=== PATIENT | male | born 1965 | race Two or more races ===

== ENCOUNTER 2023-04-28 23:58 | Inpatient (IN) | payer MEDICARE, MEDICAID ==
[~2023-04-28] VITALS: Ht 154.9 cm; Wt 75.0 kg
[2023-04-29 00:31] LABS: Hemoglobin 17.7 g/dL (13.5-17.5)
[2023-04-29 00:33] LABS: Mean Corpuscular Hemoglobin 31.9 pg (28.0-32.0); Mean Corpuscular Hgb Conc. 33.4 g/dL (32.0-36.0); Mean Corpuscular Volume 95.7 fL (80.0-100.0); Red Blood Cells 5.54 10^6/uL (4.5-5.90); White Blood Cell 20.4 10^3/uL (4.4-10.8)
[2023-04-29] MEDS ORDERED: IOHEXOL 300 MG/ML 100ML BOTTLE IJ ONE (00:41)
[2023-04-29 00:50] LABS: Albumin 3.8 g/dL (3.4-5.0); BUN/Creatinine Ratio 12.2 (10.0-20.0); Calcium 9.3 mg/dL (8.5-10.1); Potassium 4.3 mmol/L (3.5-5.1)
[2023-04-29 00:53] LABS: Bilirubin, Total 0.5 mg/dL (0.2-1.0); Total Protein 8.1 g/dL (6.4-8.2)
[2023-04-29 01:01] LABS: Basophils % (manual) 0 (0.0-2.0); Blast Cells 0; Eosinophils % (manual) 0 (0-7); Metamyelocytes % 0; Myelocytes % 0; Promyelocytes % 0; Reactive Lymphocytes 0
[2023-04-29 02:57] LABS: Band Neutrophils % (manual) 14; Lymphocytes % (manual) 6 (10.0-50.0); Monocytes % (manual) 5 (0-12)
[2023-04-29] MEDS ORDERED: PIPERACILLIN-TAZOB 3.375GM 100 ML IV ONE (05:15)
[2023-04-29] MEDS ORDERED: VANCOMYCIN 1GM/250ML 250 ML IV ONE (05:15)
[2023-04-29] MEDS ORDERED: ALBUTEROL SULF 2.5 MG/0.5ML(0.5%) NEB SOLN NEB PRN ×3 (05:45→09:45)
[2023-04-29] MEDS ORDERED: LORazepam 2MG/ML-1ML VIAL IV PRN (05:45)
[2023-04-29] MEDS ORDERED: ACETAMINOPHEN 325 MG TAB PO PRN (05:45)
[2023-04-29] MEDS ORDERED: MORPHINE SULFATE INJ 2 MG/ml SYRG IV PRN ×2 (05:45)
[2023-04-29] MEDS ORDERED: DOCUSATE SOD 100 MG CAP PO PRN ×2 (05:45→12:45)
[2023-04-29] MEDS ORDERED: DexAMETHasone SOD PHOS 10MG/1ML VIAL INJ IV ONE (05:45)
[2023-04-29] MEDS ORDERED: IPRATROPIUM BROM 0.5 MG/2.5ML INH SOL NEB PRN ×2 (05:45→09:45)
[2023-04-29] MEDS ORDERED: NITROGLYCERIN 0.4 MG SL TAB SL PRN (05:45)
[2023-04-29] MEDS ORDERED: ONDANSETRON HCL 4 MG/2 ML VIAL IV PRN (05:45)
[2023-04-29] MEDS ORDERED: VANCOMYCIN PER PHARMACY 0 MG IV SCH (05:45)
[2023-04-29 06:44] LABS: Basophils # (auto) 0 10 ^3/uL (0-0.2); Basophils % (auto) 0.1 % (0.0-2.0); Eosinophils # (auto) 0 10 ^3/uL (0-0.8); Lymphocytes # (auto) 0.4 10 ^3/uL (0.4-5.4); Lymphocytes % (auto) 1.9 % (10.0-50.0); Mean Corpuscular Hemoglobin 32.1 pg (28.0-32.0); Mean Corpuscular Hgb Conc. 34.1 g/dL (32.0-36.0); Mean Corpuscular Volume 94.3 fL (80.0-100.0); Monocytes # (auto) 1.1 10 ^3/uL (0-1.3); Monocytes % (auto) 5.8 % (0.0-12.0); Neutrophils # (auto) 18.3 10 ^3/uL (1.6-8.6); Neutrophils % (auto) 92.2 % (37.0-80.0); Red Blood Cells 5.31 10^6/uL (4.5-5.90); Red Cell Distribution Width 13.8 % (11.8-14.3); White Blood Cell 19.9 10^3/uL (4.4-10.8)
[2023-04-29 07:35] LABS: Albumin 3.7 g/dL (3.4-5.0); Calcium 9.1 mg/dL (8.5-10.1); Potassium 5.1 mmol/L (3.5-5.1)
[2023-04-29 07:38] LABS: BUN/Creatinine Ratio 15.1 (10.0-20.0); Bilirubin, Total 0.5 mg/dL (0.2-1.0); Total Protein 7.4 g/dL (6.4-8.2)
[2023-04-29] MEDS: SODIUM CHLORIDE 0.9% 1,000 ML IV SCH ×2 (07:41→22:25)
[2023-04-29] MEDS: ASPirin 81 mg TAB PO SCH (08:13)
[2023-04-29] MEDS: FAMOTIDINE (10MG/ML) 2ML VL IV SCH ×2 (08:13→22:32)
[2023-04-29] MEDS: HYDROcodone-ACET 5/325MG TAB PO PRN ×2 (08:15→15:34)
[2023-04-29] MEDS ORDERED: SODIUM CHLORIDE 0.9% 1,000 ML IV ONE (09:00)
[2023-04-29] MEDS ORDERED: NOREPINEPHRINE 8 MG/250ML KIT 250 ML IV SCH ×2 (09:15→10:00)
[2023-04-29] MEDS: cefTRIAXone 1GM/50ML D5W 50 ML IV SCH (12:21)
[2023-04-29] MEDS ORDERED: AZITHROMYCIN 500MG/ 250ML 250 ML IV ONE (12:45)
[2023-04-29] MEDS ORDERED: TRAZ-228 PO (12:46)
[2023-04-29] MEDS ORDERED: DOCU-94 PO (12:46)
[2023-04-29] MEDS ORDERED: RIS1T PO (12:46)
[2023-04-29] MEDS ORDERED: QUET25TA37 PO (12:50)
[2023-04-29] MEDS ORDERED: GABA-339 PO (12:50)
[2023-04-29] MEDS ORDERED: FLUO-125 PO (12:50)
[2023-04-29] MEDS ORDERED: TRAZ-227 PO (12:50)
[2023-04-29] MEDS ORDERED: MONT-8 PO (12:50)
[2023-04-29] MEDS ORDERED: QUET400T13 PO (12:50)
[2023-04-29] MEDS ORDERED: DIVA500T13 PO ×2 (12:53)
[2023-04-29] MEDS ORDERED: ATOR20TA50 PO (12:53)
[2023-04-29] MEDS ORDERED: BUSP10TA90 PO (12:53)
[2023-04-29] MEDS: DexAMETHasone SOD PHOS 10MG/1ML VIAL INJ IV SCH ×2 (13:24→22:32)
[2023-04-29] MEDS: risperiDONE 1 MG TAB PO SCH (17:22)
[2023-04-29 20:18] LABS: Urine Bacteria NONE SEEN /hpf (None Seen); Urine Blood Negative /uL (Negative); Urine WBC 2 /hpf (0 - 3)
[2023-04-29 20:38] LABS: Urine Specific Gravity > 1.050 (1.001-1.035)
[2023-04-29] MEDS: busPIRone HCL 10 MG TAB PO SCH (22:31)
[2023-04-29] MEDS: ATORVASTATIN 20 MG TAB PO SCH (22:32)
[2023-04-29] MEDS: QUEtiapine FUMARATE 100 MG TAB PO SCH (22:32)
[2023-04-30 01:22] VITALS: BP 156/58
[2023-04-30] MEDS: SODIUM CHLORIDE 0.9% 1,000 ML IV SCH (02:06)
[2023-04-30] MEDS: DexAMETHasone SOD PHOS 10MG/1ML VIAL INJ IV SCH ×3 (06:18→22:28)
[2023-04-30 06:20] LABS: Basophils # (auto) 0 10 ^3/uL (0-0.2); Eosinophils # (auto) 0 10 ^3/uL (0-0.8); Hematocrit 43.8 % (41.0-53.0); Lymphocytes # (auto) 0.8 10 ^3/uL (0.4-5.4); Lymphocytes % (auto) 3.6 % (10.0-50.0); Mean Corpuscular Hemoglobin 32.3 pg (28.0-32.0); Mean Corpuscular Hgb Conc. 34.3 g/dL (32.0-36.0); Mean Corpuscular Volume 94.1 fL (80.0-100.0); Monocytes # (auto) 1.3 10 ^3/uL (0-1.3); Monocytes % (auto) 6.4 % (0.0-12.0); Neutrophils # (auto) 18.9 10 ^3/uL (1.6-8.6); Red Blood Cells 4.65 10^6/uL (4.5-5.90); Red Cell Distribution Width 13.7 % (11.8-14.3)
[2023-04-30 06:26] LABS: Albumin 3.2 g/dL (3.4-5.0); Calcium 8.7 mg/dL (8.5-10.1); Potassium 4.7 mmol/L (3.5-5.1)
[2023-04-30 06:31] LABS: BUN/Creatinine Ratio 24.8 (10.0-20.0); Bilirubin, Total 0.3 mg/dL (0.2-1.0); Total Protein 6.2 g/dL (6.4-8.2)
[2023-04-30 09:24] LABS: Free T4 (Free Thyroxine) 0.78 ng/dL (0.89-1.76)
[2023-04-30 09:25] LABS: Free T3 2.06 pg/mL (2.3-4.2)
[2023-04-30] MEDS: AZITHROMYCIN 500MG/ 250ML 250 ML IV SCH (10:37)
[2023-04-30] MEDS: FAMOTIDINE (10MG/ML) 2ML VL IV SCH ×2 (10:37→22:28)
[2023-04-30] MEDS: cefTRIAXone 1GM/50ML D5W 50 ML IV SCH (10:37)
[2023-04-30] MEDS: MONTELUKAST SODIUM 10 MG TAB PO SCH (10:37)
[2023-04-30] MEDS: GABAPENTIN 300 MG CAP PO SCH (10:38)
[2023-04-30] MEDS: FLUoxetine HCL 20 MG CAP PO SCH (10:39)
[2023-04-30] MEDS: traZODone HCL 50 MG TAB PO SCH (10:39)
[2023-04-30] MEDS: busPIRone HCL 10 MG TAB PO SCH ×2 (10:40→22:20)
[2023-04-30] MEDS: ASPirin 81 mg TAB PO SCH (10:40)
[2023-04-30] MEDS: QUEtiapine FUMARATE 25 MG TAB PO SCH (10:40)
[2023-04-30] MEDS: VANCOMYCIN 1GM/250ML 250 ML IV SCH (12:00)
[2023-04-30] MEDS: risperiDONE 1 MG TAB PO SCH (17:01)
[2023-04-30] MEDS: QUEtiapine FUMARATE 100 MG TAB PO SCH (22:28)
[2023-04-30] MEDS: ATORVASTATIN 20 MG TAB PO SCH (22:28)
[2023-05-01] MEDS: VANCOMYCIN 1GM/250ML 250 ML IV SCH ×2 (00:06→14:30)
[2023-05-01] MEDS: DexAMETHasone SOD PHOS 10MG/1ML VIAL INJ IV SCH ×3 (06:33→22:16)
[2023-05-01] MEDS: cefTRIAXone 1GM/50ML D5W 50 ML IV SCH (10:20)
[2023-05-01] MEDS: busPIRone HCL 10 MG TAB PO SCH ×2 (10:21→22:16)
[2023-05-01] MEDS: ASPirin 81 mg TAB PO SCH (10:21)
[2023-05-01] MEDS: FLUoxetine HCL 20 MG CAP PO SCH (10:22)
[2023-05-01] MEDS: GABAPENTIN 300 MG CAP PO SCH (10:22)
[2023-05-01] MEDS: MONTELUKAST SODIUM 10 MG TAB PO SCH (10:22)
[2023-05-01] MEDS: FAMOTIDINE (10MG/ML) 2ML VL IV SCH ×2 (10:40→22:17)
[2023-05-01] MEDS: traZODone HCL 50 MG TAB PO SCH (10:40)
[2023-05-01] MEDS: SODIUM CHLORIDE 0.9% 1,000 ML IV SCH (10:41)
[2023-05-01] MEDS: QUEtiapine FUMARATE 25 MG TAB PO SCH (11:14)
[2023-05-01] MEDS: AZITHROMYCIN 500MG/ 250ML 250 ML IV SCH (12:24)
[2023-05-01] MEDS: risperiDONE 1 MG TAB PO SCH (18:23)
[2023-05-01] MEDS ORDERED: cloNIDine HCL 0.1 MG TAB PO ONE (21:15)
[2023-05-01 22:00] VITALS: BP 155/67
[2023-05-01] MEDS: ATORVASTATIN 20 MG TAB PO SCH (22:16)
[2023-05-01] MEDS: QUEtiapine FUMARATE 100 MG TAB PO SCH (22:19)
[2023-05-02] MEDS: SODIUM CHLORIDE 0.9% 1,000 ML IV SCH (00:25)
[2023-05-02] MEDS: VANCOMYCIN 1GM/250ML 250 ML IV SCH ×2 (02:48→15:49)
[2023-05-02 05:00] VITALS: BP 134/63
[2023-05-02] MEDS: DexAMETHasone SOD PHOS 10MG/1ML VIAL INJ IV SCH ×2 (05:48→15:49)
[2023-05-02 09:00] VITALS: BP 160/63
[2023-05-02] MEDS: cefTRIAXone 1GM/50ML D5W 50 ML IV SCH (09:17)
[2023-05-02] MEDS ORDERED: QUEtiapine FUMARATE 100 MG TAB PO SCH (11:15)
[2023-05-02] MEDS: AZITHROMYCIN 500MG/ 250ML 250 ML IV SCH (11:21)
[2023-05-02] MEDS: ASPirin 81 mg TAB PO SCH (11:28)
[2023-05-02] MEDS: traZODone HCL 50 MG TAB PO SCH (11:29)
[2023-05-02] MEDS: FLUoxetine HCL 20 MG CAP PO SCH (11:29)
[2023-05-02] MEDS: GABAPENTIN 300 MG CAP PO SCH (11:29)
[2023-05-02] MEDS: MONTELUKAST SODIUM 10 MG TAB PO SCH (11:30)
[2023-05-02] MEDS: FAMOTIDINE (10MG/ML) 2ML VL IV SCH (11:30)
[2023-05-02] MEDS: busPIRone HCL 10 MG TAB PO SCH (11:30)
[2023-05-02] MEDS ORDERED: METH4PAK PO (11:45)
[2023-05-02] MEDS ORDERED: AZIT500T66 PO (11:45)
[2023-05-02] MEDS ORDERED: CLIN300C70 PO (11:45)
[2023-05-02] MEDS ORDERED: ALBUAER3 IN (11:45)
[2023-05-02 14:00] VITALS: BP 160/63
[2023-05-03] MEDS ORDERED: QUEtiapine FUMARATE 100 MG TAB PO SCH (10:00)
== END 2023-05-02 15:45 | disposition home or self-care (01) | DRG 871 ==
LOC: ER 23:58 → TELE 04-29 05:42 → WEST WING 05-01 21:30
PROVIDERS: ADMIT Nurse Practitioner Family; ATTEND Family Medicine
PROC: 02HV33Z Insertion of Infusion Device into Superior Vena Cava, Percutaneous Approach (ICD-10-PCS; principal; 2023-04-29)
PROC: B548ZZA Ultrasonography of Superior Vena Cava, Guidance (ICD-10-PCS; 2023-04-29)
DX: A41.9 Sepsis, unspecified organism (principal); J69.0 Pneumonitis due to inhalation of food and vomit; J96.01 Acute respiratory failure with hypoxia; R65.21 Severe sepsis with septic shock; N17.0 Acute kidney failure with tubular necrosis; J44.1 Chronic obstructive pulmonary disease with (acute) exacerbation; J44.0 Chronic obstructive pulmonary disease with (acute) lower respiratory infection; Z20.822 Contact with and (suspected) exposure to COVID-19; E66.9 Obesity, unspecified; G80.9 Cerebral palsy, unspecified; I10 Essential (primary) hypertension; R26.81 Unsteadiness on feet; Z68.32 Body mass index [BMI] 32.0-32.9, adult
CPT/HCPCS: 36415; 36600; 51702; 71045; 71260; 74177; 80053; 80164; 80202; 81001; 82805; 83036; 83735; 83880; 84439; 84443; 84481; 84484; 85007; 85025; 85027; 87040; 87426; 93005; 96365; 99291; G0378; J0696; J1100; J2405; J2543; J3490

== ENCOUNTER 2023-10-16 17:10 | Emergency (ER) | payer MEDICARE, MEDICAID ==
[~2023-10-16] VITALS: Ht 154.9 cm; Wt 66.0 kg
[~2023-10-16 17:10] MED LIST: ALBUAER3 IN; ATOR20TA50 PO; AZIT500T66 PO; BUSP10TA90 PO; CLIN300C70 PO; DIVA500T13 PO; DOCU-94 PO; FLUO-125 PO; GABA-339 PO; METH4PAK PO; MONT-8 PO; QUET25TA37 PO; QUET400T13 PO; RIS1T PO; TRAZ-227 PO; TRAZ-228 PO
[2023-10-16 20:23] LABS: Basophils # (auto) 0 10 ^3/uL (0-0.2); Basophils % (auto) 0.4 % (0.0-2.0); Eosinophils # (auto) 0 10 ^3/uL (0-0.8); Eosinophils % (auto) 0.6 % (0.0-7.0); Hemoglobin 16.6 g/dL (13.5-17.5); Lymphocytes # (auto) 2.3 10 ^3/uL (0.4-5.4); Lymphocytes % (auto) 37.3 % (10.0-50.0); Mean Corpuscular Hemoglobin 30.9 pg (28.0-32.0); Mean Corpuscular Hgb Conc. 33.8 g/dL (32.0-36.0); Mean Corpuscular Volume 91.4 fL (80.0-100.0); Monocytes # (auto) 0.8 10 ^3/uL (0-1.3); Monocytes % (auto) 12.5 % (0.0-12.0); Neutrophils # (auto) 3.1 10 ^3/uL (1.6-8.6); Neutrophils % (auto) 49.2 % (37.0-80.0); Nucleated Red Blood Cells % 0.2 %; Red Blood Cells 5.37 10^6/uL (4.5-5.90); White Blood Cell 6.2 10^3/uL (4.4-10.8)
[2023-10-16] MEDS ORDERED: KETOROLAC TROMETH 30 MG/ML 1ML VIAL IM ONE (20:45)
[2023-10-16 20:52] LABS: Alanine Aminotransferase 36 U/L (7-40); Albumin 4.7 g/dL (3.2-4.8); Alkaline Phosphatase 99 U/L (46-116); Anion Gap 6 (5-15); Aspartate Aminotransferase 25 U/L (13-40); BUN/Creatinine Ratio 23.5 (10.0-20.0); Bilirubin, Total 0.5 mg/dL (0.2-1.0); Blood Urea Nitrogen 24 mg/dL (9-23); Calcium 10.1 mg/dL (8.7-10.4); Carbon Dioxide 30 mmol/L (20-30); Chloride 103 mmol/L (98-107); Glucose 82 mg/dL (74-106); Magnesium 2.2 mg/dL (1.6-2.6); Potassium 4.4 mmol/L (3.5-5.1); Sodium 139 mmol/L (136-145); Total Protein 7.5 g/dL (5.7-8.2)
[2023-10-16 21:49] VITALS: BP 125/70; PULSE 95; RESP 18; TEMP 98.2; O2SAT 96
== END 2023-10-16 22:01 | disposition home or self-care (01) ==
LOC: ER 17:10
DX: M79.645 Pain in left finger(s) (principal); G80.9 Cerebral palsy, unspecified; M54.2 Cervicalgia; Z79.899 Other long term (current) drug therapy
CPT/HCPCS: 36415; 70450; 71045; 72125; 73130; 80053; 83735; 84484; 85025; 96372; 99285; J1885

== ENCOUNTER 2023-11-06 22:01 | Emergency (ER) | payer MEDICARE, MEDICAID ==
[~2023-11-06] VITALS: Ht 165.1 cm; Wt 90.0 kg
[2023-11-06 23:00] VITALS: PULSE 97; RESP 15; O2SAT 97
[2023-11-06 23:00] LABS: Basophils # (auto) 0 10 ^3/uL (0-0.2); Basophils % (auto) 0.2 % (0.0-2.0); Eosinophils # (auto) 0 10 ^3/uL (0-0.8); Eosinophils % (auto) 0.6 % (0.0-7.0); Hematocrit 49.1 % (41.0-53.0); Hemoglobin 16.2 g/dL (13.5-17.5); Lymphocytes # (auto) 1.9 10 ^3/uL (0.4-5.4); Lymphocytes % (auto) 27.2 % (10.0-50.0); Mean Corpuscular Hemoglobin 31.3 pg (28.0-32.0); Mean Corpuscular Hgb Conc. 33.1 g/dL (32.0-36.0); Mean Corpuscular Volume 94.4 fL (80.0-100.0); Monocytes # (auto) 0.7 10 ^3/uL (0-1.3); Monocytes % (auto) 10.5 % (0.0-12.0); Neutrophils # (auto) 4.2 10 ^3/uL (1.6-8.6); Neutrophils % (auto) 61.5 % (37.0-80.0); Red Blood Cells 5.19 10^6/uL (4.5-5.90); Red Cell Distribution Width 16.2 % (11.8-14.3); White Blood Cell 6.8 10^3/uL (4.4-10.8)
[2023-11-06 23:14] LABS: Alanine Aminotransferase 31 U/L (7-40); Alkaline Phosphatase 89 U/L (46-116); Anion Gap 7 (5-15); BUN/Creatinine Ratio 13.8 (10.0-20.0); Blood Urea Nitrogen 18 mg/dL (9-23); Calcium 9.8 mg/dL (8.7-10.4); Carbon Dioxide 27 mmol/L (20-30); Chloride 108 mmol/L (98-107); Glucose 121 mg/dL (74-106); Sodium 142 mmol/L (136-145)
[2023-11-06 23:15] LABS: Albumin 4.1 g/dL (3.2-4.8); Aspartate Aminotransferase 23 U/L (13-40); Bilirubin, Total 0.5 mg/dL (0.2-1.0); Total Protein 6.9 g/dL (5.7-8.2)
[2023-11-07 03:00] VITALS: BP 127/71; PULSE 98; RESP 16; O2SAT 98
== END 2023-11-07 03:10 | disposition home or self-care (01) ==
LOC: ER 22:01 → EDBD 22:01 → ER 11-07 03:05
DX: R56.9 Unspecified convulsions (principal); R07.89 Other chest pain; I10 Essential (primary) hypertension; E78.5 Hyperlipidemia, unspecified; Z79.2 Long term (current) use of antibiotics; Z79.899 Other long term (current) drug therapy
CPT/HCPCS: 36415; 70450; 71045; 80053; 80164; 83605; 83880; 84484; 85025; 93005

== ENCOUNTER 2023-11-12 20:23 | Emergency (ER) | payer MEDICARE, MEDICAID ==
[~2023-11-12] VITALS: Ht 177.8 cm; Wt 84.4 kg
[2023-11-12] MEDS ORDERED: cefTRIAXone SOD 1,000 MG VL IV ONE (21:30)
[2023-11-12 21:55] LABS: Basophils # (auto) 0 10 ^3/uL (0-0.2); Basophils % (auto) 0.3 % (0.0-2.0); Eosinophils # (auto) 0.1 10 ^3/uL (0-0.8); Eosinophils % (auto) 1.2 % (0.0-7.0); Hematocrit 41.6 % (41.0-53.0); Hemoglobin 14.2 g/dL (13.5-17.5); Lymphocytes # (auto) 1.8 10 ^3/uL (0.4-5.4); Lymphocytes % (auto) 24.9 % (10.0-50.0); Mean Corpuscular Hemoglobin 31.3 pg (28.0-32.0); Mean Corpuscular Hgb Conc. 34.1 g/dL (32.0-36.0); Mean Corpuscular Volume 91.9 fL (80.0-100.0); Monocytes # (auto) 1.2 10 ^3/uL (0-1.3); Monocytes % (auto) 16.3 % (0.0-12.0); Neutrophils # (auto) 4.1 10 ^3/uL (1.6-8.6); Neutrophils % (auto) 57.3 % (37.0-80.0); Red Blood Cells 4.53 10^6/uL (4.5-5.90); Red Cell Distribution Width 14.9 % (11.8-14.3); White Blood Cell 7.2 10^3/uL (4.4-10.8)
[2023-11-12 22:14] LABS: Alanine Aminotransferase 36 U/L (7-40); Albumin 3.8 g/dL (3.2-4.8); Alkaline Phosphatase 83 U/L (46-116); Anion Gap 8 (5-15); Aspartate Aminotransferase 41 U/L (13-40); BUN/Creatinine Ratio 26.4 (10.0-20.0); Blood Urea Nitrogen 23 mg/dL (9-23); Calcium 9.6 mg/dL (8.7-10.4); Carbon Dioxide 28 mmol/L (20-30); Chloride 103 mmol/L (98-107); Glucose 144 mg/dL (74-106); Magnesium 1.9 mg/dL (1.6-2.6); Potassium 3.5 mmol/L (3.5-5.1); Sodium 139 mmol/L (136-145)
[2023-11-12 22:15] LABS: Bilirubin, Total 0.5 mg/dL (0.2-1.0); Total Protein 6.2 g/dL (5.7-8.2)
[2023-11-12 22:29] LABS: INR 1.08 (0.9-1.15); Partial Thromboplastin Time 29.4 SEC (24.5-34.5); Prothrombin Time 11.3 sec (9.3-11.8)
[2023-11-12 23:23] VITALS: PULSE 83; RESP 20; O2SAT 95
[2023-11-13] MEDS ORDERED: cefTRIAXone 1GM/50ML D5W 50 ML IV ONE
[2023-11-13 10:52] VITALS: BP 153/82; PULSE 93; RESP 16; TEMP 97.9; O2SAT 93
== END 2023-11-13 14:14 | disposition home or self-care (01) ==
LOC: ER 20:23 → EDBD 20:23 → EDUNIT# 20:23 → ER 11-13 14:14
DX: R06.00 Dyspnea, unspecified (principal); J44.9 Chronic obstructive pulmonary disease, unspecified; E78.5 Hyperlipidemia, unspecified; I10 Essential (primary) hypertension
CPT/HCPCS: 36415; 71045; 71275; 80053; 83605; 83735; 83880; 84484; 85025; 85610; 85730; 87040; 93005; 96372; 99285; J0696